=== PATIENT | male | born 2000 | race Caucasian/White ===

== ENCOUNTER 2021-07-26 17:29 | Outpatient (CLI) | payer BC ==
[2021-07-26 18:39] LABS: Bilirubin Neg (Negative); Blood, Urine 150 (Negative); Clarity Cloudy (Clear); Glucose, Urine (Dipstick) Normal (Negative); Hemoglobin 14.5 g/dL (13.5-17.5); Ketone, Urine Negative (Negative); Leukocyte 500 (Negative); Mean Corpuscular Hemoglobin 29.6 pg (27.0-33.0); Mean Corpuscular Volume 87.1 fl (81.2-95.1); Mean Platelet Volume 9.9 fl (7.4-10.4); Nitrite Negative (Negative); Platelet Count 329 10x3/uL (150-450); Protein, Urine (Dipstick) 100 mg/dl (Neg-Trace); RBC Distribution Width 12.6 % (11.5-14.5); Specific Gravity, Urine 1.015 (1.002-1.036); White Blood Cell (WBC) Count 8.3 10x3/uL (3.5-10.5); pH, Urine 6.5 (5.0-9.0)
[2021-07-26 18:56] LABS: Anion Gap 14 mmol/L (10-20); BUN (Urea Nitrogen) 14 mg/dL (8.9-20.6); Calc. Creatinine Clearance 0 mL/min (70-130); Calcium 9.8 mg/dL (7.8-10.44); Carbon Dioxide 26 mmol/L (22-29); Chloride 106 mmol/L (98-107); Glucose 113 mg/dL (70-105); Potassium 4.1 mmol/L (3.5-5.1); RBC/HPF 21-50 HPF (0-3); Sodium 142 mmol/L (136-145)
[2021-07-26 18:57] LABS: Bacteria/HPF 1+ HPF (None Seen); Mucous/LPF 1+ LPF (<2+); Renal Epithelial 0-3 HPF (None Seen); Squamous Epithelial 0-3 HPF (0-3); WBC/HPF 21-50 HPF (0-3)
== END 2021-07-26 17:30 | disposition home or self-care (01) ==
LOC: LABBT 17:29
PROVIDERS: ATTEND Urology
DX: Z01.812 Encounter for preprocedural laboratory examination (principal); N20.0 Calculus of kidney
CPT/HCPCS: 80048; 81001; 85027; 87086

== ENCOUNTER 2021-07-29 07:24 | Day surgery (SDC) | payer BC ==
[2021-07-26 08:48] VITALS: BMI 17.6
[2021-07-29 07:24] LABS: #Basophils 0.1 thou/uL (0.0-0.2); #Lymphocytes 1.7 thou/uL (1.20-3.40); #Neutrophils 4.3 thou/uL (1.40-6.50); %Basophils 0.7 % (0.0-1.0); %Eosinophils 11.9 % (0.0-10.0); %Lymphocytes 21.2 % (28.0-48.0); %Monocytes 12.8 % (0.0-4.0); %Neutrophils 53.3 % (31.0-61.0); Hemoglobin 15.9 g/dL (14.0-18.0); Mean Corpuscular HGB CONC 34.6 g/dL (32.0-36.0); Mean Corpuscular Hemoglobin 30.4 pg (25.0-35.0); Mean Corpuscular Volume 87.9 fL (78.0-98.0); Mean Platelet Volume 6.8 fL (7.4-10.4); Platelet Count 308 thou/uL (130-400); RBC Distribution Width 11.8 % (11.5-14.5); Red Blood Cell (RBC) Count 5.22 mill/uL (4.00-5.20); White Blood Cell (WBC) Count 8.1 thou/uL (4.8-10.8)
[2021-07-29 07:39] LABS: Prothrombin Time 13.1 sec (12.0-14.7)
[2021-07-29 07:40] LABS: PTT 36.8 sec (22.9-36.1)
[2021-07-29 07:41] LABS: Calc. Creatinine Clearance 117 mL/min (70-130)
[2021-07-29] MEDS ORDERED: cefTRIAXone\\ROCEPHIN 1 GM in Sodium Chloride 0.9% 100 ML IVPB SCH (09:00)
[2021-07-29] MEDS ORDERED: Midazolam HCl 2 mg/2 ml Vial ONE (09:03)
[2021-07-29] MEDS ORDERED: Fentanyl 100 MCG/2 ML VIAL ONE (09:03)
[2021-07-29 09:07] VITALS: BP 112/76; TEMP 98.1
[2021-07-29] MEDS ORDERED: diphenhydrAMINE 50 MG/ML VIAL ONE (10:06)
[2021-07-29] MEDS ORDERED: Acetaminophen 500 MG TAB ONE (11:07)
== END 2021-07-29 12:00 | disposition home or self-care (01) ==
LOC: SPEC 07:24
PROVIDERS: ATTEND Urology
PROC: BT1DZZZ Fluoroscopy of Right Kidney, Ureter and Bladder (ICD-10-PCS; principal; 2021-07-29)
DX: N13.2 Hydronephrosis with renal and ureteral calculous obstruction (principal); Z53.8 Procedure and treatment not carried out for other reasons; Z88.0 Allergy status to penicillin
CPT/HCPCS: 50430; 50432; 82565; 85025; 85610; 85730; J0696; J1200; J2250; J3010; J3490

== ENCOUNTER 2021-07-30 08:29 | Day surgery (SDC) | payer BC ==
[2021-07-29 11:48] VITALS: BMI 17.6
[~2021-07-30 08:29] MED LIST: Dexamethasone 20 MG/5 ML VIAL ONE; Glycopyrrolate 0.2 MG/ML 5 ML SYRINGE ONE; Ketorolac Tromethamine 30 MG/ML VIAL ONE; Lidocaine 1% PF 5 ML VIAL ONE; Metoclopramide HCl 10 MG/2 ML VIAL ONE; Ondansetron PF 4 MG/2 ML Vial ONE; PHENYLEPHRINE-NS 100 MCG/ML 10 ML SYRINGE ONE; PROPOFOL 200 MG/20 ML VIAL ONE; Rocuronium Bromide 10 MG/ML (10ML VIAL) ONE; ePHEDrine 50 MG/ML VIAL ONE
[2021-07-30] MEDS ORDERED: Levofloxacin 500 mg/D5W 100 ml Premix Bag ONE (09:16)
[2021-07-30] MEDS ORDERED: Iothalamate Meglumine 60% 50 ML VIAL FS ONE ×2 (10:02→10:07)
[2021-07-30] MEDS ORDERED: Midazolam HCl 2 mg/2 ml Vial ONE (10:03)
[2021-07-30] MEDS ORDERED: Dexmedetomidine 200 MCG/2 ML VIAL ONE (10:04)
[2021-07-30] MEDS ORDERED: Fentanyl 100 MCG/2 ML VIAL ONE (10:04)
[2021-07-30] MEDS ORDERED: PHENYLEPHRINE-NS 100 MCG/ML 10 ML SYRINGE ONE (11:06)
[2021-07-30] MEDS ORDERED: Bupivacaine 0.25% HCL 30 ML VIAL ONE (11:58)
[2021-07-30] MEDS ORDERED: Phenazopyridine HCl 100 MG TAB ONE (13:32)
[2021-07-30] MEDS ORDERED: Oxybutynin 5 MG TAB ONE (13:32)
[2021-08-05 11:37] LABS: CA Oxalate Dihydrate 70 % (.); CA Oxalate Monohydrate 25 % (.); Color Tan (.); Stone Weight 505 mg (.)
== END 2021-07-30 15:15 | disposition home or self-care (01) ==
LOC: SDC 08:29
PROVIDERS: ATTEND Urology
PROC: 0TC03ZZ Extirpation of Matter from Right Kidney, Percutaneous Approach (ICD-10-PCS; principal; 2021-07-30)
PROC: 0T903ZZ Drainage of Right Kidney, Percutaneous Approach (ICD-10-PCS; principal; 2021-07-30)
DX: N13.2 Hydronephrosis with renal and ureteral calculous obstruction (principal); Z88.0 Allergy status to penicillin; Z88.5 Allergy status to narcotic agent
CPT/HCPCS: 50430; 50437; 76000; 82365; 88300; J1100; J1885; J1956; J2250; J2405; J2704; J2765; J3010; J3490; Q9961; S0020

== ENCOUNTER 2021-07-30 20:48 | Observation (INO) | payer BC ==
[2021-07-30] MEDS ORDERED: Fentanyl 100 MCG/2 ML VIAL ONE (21:55)
[2021-07-30] MEDS ORDERED: Ketorolac Tromethamine 30 MG/ML VIAL ONE (21:56)
[2021-07-30] MEDS ORDERED: Ondansetron PF 4 MG/2 ML Vial ONE ×3 (21:56→21:58)
[2021-07-30 22:10] LABS: #Lymphocytes 0.5 thou/uL (1.20-3.40); #Monocytes 0.5 thou/uL (0.11-0.59); #Neutrophils 13.2 thou/uL (1.40-6.50); %Basophils 0.1 % (0.0-1.0); %Lymphocytes 3.3 % (28.0-48.0); %Monocytes 3.7 % (0.0-4.0); %Neutrophils 92.9 % (31.0-61.0); Hemoglobin 14.5 g/dL (14.0-18.0); Mean Corpuscular HGB CONC 34.9 g/dL (32.0-36.0); Mean Corpuscular Hemoglobin 30.7 pg (25.0-35.0); Mean Platelet Volume 7.1 fL (7.4-10.4); Platelet Count 267 thou/uL (130-400); RBC Distribution Width 11.7 % (11.5-14.5); Red Blood Cell (RBC) Count 4.71 mill/uL (4.00-5.20); White Blood Cell (WBC) Count 14.3 thou/uL (4.8-10.8)
[2021-07-30 22:31] LABS: ALT (SGPT) 18 U/L (8-55); AST (SGOT) 18 U/L (5-34); Alkaline Phosphatase 86 U/L (50-130); Anion Gap 14 mmol/L (10-20); BUN (Urea Nitrogen) 11 mg/dL (8.9-20.6); Bilirubin, Total 0.4 mg/dL (0.2-1.2); Calc. Creatinine Clearance 0 mL/min (70-130); Calcium 9.2 mg/dL (7.8-10.44); Carbon Dioxide 23 mmol/L (22-29); Chloride 102 mmol/L (98-107); Globulin 2.5 g/dL (2.4-3.5); Glucose 150 mg/dL (70-105); Potassium 5.2 mmol/L (3.5-5.1); Protein, Total 6.5 g/dL (6.0-8.3); Sodium 134 mmol/L (136-145)
[2021-07-30] MEDS ORDERED: Morphine 4 MG/ML VIAL ONE (22:43)
[2021-07-30] MEDS ORDERED: diphenhydrAMINE 50 MG/ML VIAL ONE (23:20)
[2021-07-30] MEDS ORDERED: Ondansetron ODT 4 MG TAB SL PRN (23:45)
[2021-07-30] MEDS ORDERED: Ondansetron PF 4 MG/2 ML Vial IVP PRN (23:45)
[2021-07-31] MEDS: Sodium Chloride 0.9% 1,000 ML IV SCH ×4 (00:25→20:37)
[2021-07-31] MEDS: Fentanyl 100 MCG/2 ML VIAL SLOW IVP PRN ×4 (00:26→08:16)
[2021-07-31 01:07] VITALS: BMI 26.4
[2021-07-31] MEDS ORDERED: Zolpidem Tartrate 5 MG TAB PO PRN (08:07)
[2021-07-31] MEDS ORDERED: Morphine 4 MG/ML VIAL SLOW IVP PRN (08:07)
[2021-07-31] MEDS ORDERED: diphenhydrAMINE 50 MG/ML VIAL IVP PRN (08:07)
[2021-07-31] MEDS: Tamsulosin HCl 0.4 MG CAP PO SCH (10:04)
[2021-07-31] MEDS: cefTRIAXone\\ROCEPHIN 1 GM in Sodium Chloride 0.9% 100 ML IVPB SCH (10:09)
[2021-07-31] MEDS: Ketorolac Tromethamine 30 MG/ML VIAL IVP SCH ×3 (11:08→23:06)
[2021-07-31 13:07] LABS: Anion Gap 13 mmol/L (10-20); BUN (Urea Nitrogen) 15 mg/dL (8.9-20.6); Calc. Creatinine Clearance 108 mL/min (70-130); Carbon Dioxide 24 mmol/L (22-29); Chloride 107 mmol/L (98-107); Glucose 105 mg/dL (70-105); Potassium 4.5 mmol/L (3.5-5.1); Sodium 139 mmol/L (136-145)
[2021-07-31] MEDS: HYDROcodone/Acetaminophen 5/325 mg Tablet PO PRN (20:42)
[2021-08-01 03:44] VITALS: TEMP 97.5
[2021-08-01] MEDS: Ketorolac Tromethamine 30 MG/ML VIAL IVP SCH (05:12)
[2021-08-01] MEDS: Sodium Chloride 0.9% 1,000 ML IV SCH (05:12)
[2021-08-01 06:48] LABS: Anion Gap 10 mmol/L (10-20); BUN (Urea Nitrogen) 13 mg/dL (8.9-20.6); Calc. Creatinine Clearance 107 mL/min (70-130); Calcium 8.4 mg/dL (7.8-10.44); Carbon Dioxide 24 mmol/L (22-29); Chloride 110 mmol/L (98-107); Glucose 87 mg/dL (70-105); Potassium 4.6 mmol/L (3.5-5.1); Sodium 139 mmol/L (136-145)
[2021-08-01 08:19] VITALS: BP 123/76
[2021-08-01] MEDS: cefTRIAXone\\ROCEPHIN 1 GM in Sodium Chloride 0.9% 100 ML IVPB SCH (09:49)
[2021-08-01] MEDS: Tamsulosin HCl 0.4 MG CAP PO SCH (09:49)
[2021-08-01] MEDS: HYDROcodone/Acetaminophen 5/325 mg Tablet PO PRN (11:37)
== END 2021-08-01 11:57 | disposition home or self-care (01) ==
LOC: ERS 20:48 → SURG B 23:12
PROVIDERS: ADMIT Urology; ATTEND Urology
DX: N13.2 Hydronephrosis with renal and ureteral calculous obstruction (principal); G89.18 Other acute postprocedural pain; R10.9 Unspecified abdominal pain; R11.2 Nausea with vomiting, unspecified; E87.5 Hyperkalemia; Z79.899 Other long term (current) drug therapy; Z88.0 Allergy status to penicillin; Z88.5 Allergy status to narcotic agent
CPT/HCPCS: 36415; 50430; 50437; 51798; 76000; 80048; 80053; 82365; 85025; 88300; 96365; 96374; 96375; 96376; G0378; J0696; J1200; J1885; J1956; J2250; J2270; J2405; J3010; J3490; J7050; Q9961; S0020